=== PATIENT | female | born 1955 | race Caucasian/White ===

== ENCOUNTER 2016-08-21 08:08 | Emergency (ER) | payer OTHER ==
[2016-08-21] MEDS ORDERED: Vancomycin(*) 1,000 MG in NS 0.9% 250 ML* 250 ML IVPB ONE (08:15)
[2016-08-21] MEDS ORDERED: Ondansetron INJ* 2 MG/ML VIAL IV ONE (08:15)
[2016-08-21] MEDS ORDERED: NS 0.9% 1000 ML* 1,000 ML IV ONE (08:15)
[2016-08-21 09:05] LABS: Hematocrit 40 % (35-47); Hemoglobin 13.6 g/dl (12.0-16.0); Mean Corpuscular HGB Conc 34 g/dl (31-36); Mean Corpuscular Hemoglobin 29 pg (27-31); Mean Corpuscular Volume 85 fL (80-97); Mean Platelet Volume 9 um3 (7.4-10.4); Red Blood Count 4.72 10^6/ul (4.0-5.4); Red Cell Distribution Width 14 % (10.5-15); White Blood Count 6.9 10^3/ul (3.5-10.8)
[2016-08-21] MEDS ORDERED: NS 0.9% 250 ML* 250 ML ONE (09:14)
[2016-08-21 09:20] LABS: BUN/Creatinine Ratio 24.2 (8-20); Calcium 9.8 mg/dL (8.6-10.3); EGFR African American 80.6 (>60); EGFR Non-African American 62.6 (>60); Globulin 4.8 g/dL (2-4); Total Bilirubin 0.6 mg/dL (0.2-1.0); Total Protein 8.8 g/dL (6.4-8.9)
[2016-08-21] MEDS ORDERED: Vancomycin(*) 1,000 MG - ED ONCE IVPB ONE ×2 (09:30)
[2016-08-21 09:44] LABS: Potassium 3.7 mmol/L (3.5-5.0)
[2016-08-21 11:04] VITALS: BP 122/72
--- NOTE | 2016-08-21 11:57 | ED ---
Traci, DoctorBlanche, scribed for Madhav Mosher MD on 08/21/16 at 0818 . Lower Extremity - HPI Summary HPI Summary: 61 year old female BIBA c/o an infection in her right foot which began approximately a week ago. She also reports nausea and multiple episodes of vomiting; denies any current nausea. She was prescribed 2 separate abx 5 days ago, but has not been taking them as she was unable to keep anything down. She last took abx 3 days ago. Pt has PMHx of DM, and indicated that her blood sugar has been elevated in the past few days as she has not been taking insulin or metformin. - History of Current Complaint Stated Complaint: RT FOOT COMPLAINT Hx Obtained From: Patient Onset/Duration: Days Severity Initially: Moderate Severity Currently: Moderate Associated Signs And Symptoms: Positive: Redness, Other - right foot pain; nausea, vomiting - Allergies/Home Medications Allergies/Adverse Reactions: Allergies Allergy/AdvReac Type Severity Reaction Status Date / Time IVP Dye Allergy Intermediate Hives Uncoded 04/07/16 15:34 PMH/Surg Hx/FS Hx/Imm Hx Endocrine/Hematology History: Reports: Hx Diabetes Denies: Hx Thyroid Disease Cardiovascular History: Reports: Hx Angina - LAST TOOK NITRO 3 YRS AGO, Hx Coronary Artery Disease - 3 STENTS PLACED 10YRS AGO, Hx Hypertension, Other Cardiovascular Problems/Disorders - CAD Denies: Hx Pacemaker/ICD Respiratory History: Denies: Hx Asthma GI History: Reports: Hx Gastroesophageal Reflux Disease - WELL CONTROLLED, Hx Irritable Bowel - HX OF Denies: Hx Ulcer Musculoskeletal History: Reports: Hx Arthritis - BILATERAL HANDS AND FEET Denies: Hx Rheumatoid Arthritis, Hx Osteoporosis Sensory History: Reports: Hx Cataracts - BILATERAL, Hx Contacts or Glasses - READING Denies: Hx Hearing Aid Opthamlomology History: Reports: Hx Cataracts - BILATERAL, Hx Contacts or Glasses - READING Psychiatric History: Reports: Hx Depression - CONTROL WITH MEDS Denies: Hx Panic Disorder - Surgical History Surgery Procedure, Year, and Place: [address] 1987 , [place]. MASS REMOVED FROM LEFT HUMERUS, [facility]. L ACL REPAIR MAY 2013 Hx Anesthesia Reactions: No Infectious Disease History: Denies: Hx Hepatitis, Hx Human Immunodeficiency Virus (HIV) - Family History Known Family History: Positive: Other - no fhx of malignant hyperthermia or reaction to anesthesia - Social History Alcohol Use: None Substance Use Type: Reports: None Smoking Status (MU): Never Smoked Tobacco Review of Systems Negative: Fever Positive: Vomiting, Nausea Positive: Other - right foot pain/infection All Other Systems Reviewed And Are Negative: Yes Physical Exam Triage Information Reviewed: Yes Vital Signs On Initial Exam: Initial Vitals Temp Pulse Resp BP Pulse Ox 98.7 F 89 20 124/72 99 08/21/16 08:09 08/21/16 08:09 08/21/16 08:09 08/21/16 08:09 08/21/16 08:09 Vital Signs Reviewed: Yes Appearance: Positive: Well-Appearing, No Pain Distress Skin: Positive: Other - mild erythema and cellulitis on the right dorsolateral foot Head/Face: Positive: Normal Head/Face Inspection Eyes: Positive: Normal ENT: Positive: Normal ENT inspection Neck: Positive: Supple, Nontender Respiratory/Lung Sounds: Positive: Clear to Auscultation, Breath Sounds Present Cardiovascular: Positive: RRR Abdomen Description: Positive: Nontender, Soft Bowel Sounds: Positive: Present Musculoskeletal: Positive: Normal Neurological: Positive: Normal Psychiatric: Positive: Normal Diagnostics - Vital Signs Vital Signs Temp Pulse Resp BP Pulse Ox 08/21/16 11:02 98.7 F 86 20 122/72 08/21/16 08:17 98.7 F 89 20 124/72 98 08/21/16 08:09 98.7 F 89 20 124/72 99 - Laboratory Lab Results: 0850 - Lactic Acid - 2.4 H* Result Diagrams: 08/21/16 08:50 08/21/16 08:50 Lab Statement: Any lab studies that have been ordered have been reviewed, and results considered in the medical decision making process. Re-Evaluation - Re-Evaluation First Eval Re-Evaluation Time: 10:03 Comment: Discussed plan to discharge pt, she is agreeable. Lower Extremity Course/Dx - Course Course Of Treatment: Ms. Hernandez presented to the ED unableto tolerate her antibiotics for cellulitis secondary to N/V. She was hydrated here and treated with anti-emetics and felt much improved. I don't consider her to have failed out patient antibiotics as she has not actually taken them. Neverless I gave her an IV dose of vancomycin. - Diagnoses Provider Diagnoses: Cellulitis Discharge - Discharge Plan Condition: Stable Disposition: HOME Prescriptions: Ondansetron ODT TAB* [Zofran Odt TAB*] 4 mg PO Q6H PRN #20 tab.odt PRN Reason: Nausea/Vomiting Patient Education Materials: Cellulitis (ED) Referrals: Sly ROMERO,Casey Spivey [Primary Care Provider] - The documentation as recorded by the Doctor godinez Tahera accurately reflects the service I personally performed and the decisions made by me, Madhav Mosher MD.
== END 2016-08-21 11:05 | disposition home or self-care (01) ==
LOC: ED 08:08
DX: L03.115 Cellulitis of right lower limb (principal); E11.9 Type 2 diabetes mellitus without complications; I25.10 Atherosclerotic heart disease of native coronary artery without angina pectoris; I10 Essential (primary) hypertension
CPT/HCPCS: 36415; 80053; 83605; 85025; 85610; 87040; 96360; 96374; 99283; J2405; J3370

== ENCOUNTER 2018-06-28 07:05 | Emergency (ER) | payer OTHER ==
[2018-06-28] MEDS ORDERED: Acetaminophen TAB* 325 MG PO ONE (07:53)
[2018-06-28] MEDS ORDERED: Ondansetron ODT TAB* 4 MG PO ONE (07:53)
--- NOTE | 2018-06-28 08:26 | UC ---
Head Injury HPI - HPI Summary HPI Summary: SLIPPED ON THE ICE THIS MORNING AND FELL BACKWARDS STRIKING HER HEAD ON SLATE PAVEMENT. ALSO STRUCK HER LEFT ELBOW. HAS HEADACHE, DIZZINESS AND NAUSEA. NO LOC. NO VISUAL DISTURBANCE. - History Of Current Complaint Chief Complaint: UCHeadInjury Stated Complaint: BACK /NECK PAIN Time Seen by Provider: 06/28/18 07:18 Hx Obtained From: Patient Onset/Duration: Sudden Onset, Lasting Hours, Still Present Severity Currently: Moderate Severity Initially: Moderate Pain Intensity: 7 Pain Scale Used: 0-10 Numeric Character: Dull Aggravating Factor(s): Nothing Alleviating Factor(s): Nothing Associated Signs And Symptoms: Positive: Nausea. Negative: LOC (Time In Secs./ Mins/Hrs), LOC Duration Unknown, Confusion, Epistaxis, Dental Malocclusion, Neck Pain - Allergies/Home Medications Allergies/Adverse Reactions: Allergies Allergy/AdvReac Type Severity Reaction Status Date / Time Sulfa (Sulfonamide Allergy Rash And Verified 06/28/18 07:28 Antibiotics) Itching IVP Dye Allergy Intermediate Hives Uncoded 06/28/18 07:28 Home Medications: Home Medications Gabapentin CAP(*) [Neurontin 300 CAP(*)] 600 mg PO QID 06/28/18 [History Confirmed 06/28/18] Insulin GLARGINE(*) [Lantus(*)] 66 units SUBCUT BEDTIME 06/28/18 [History Confirmed 06/28/18] Lisinopril TAB* [Prinivil TAB 10 MG*] 20 mg PO DAILY 06/28/18 [History Confirmed 06/28/18] oxyCODONE/Acetamin 5/325 MG* [Percocet 5/325 TAB*] 1 tab PO Q4HR PRN MDD 10 05/18 [History Confirmed 06/28/18] PMH/Surg Hx/FS Hx/Imm Hx Endocrine History: Diabetes Cardiovascular History: Cardiac Disease, Hypertension - Surgical History Surgical History: Yes Surgery Procedure, Year, and Place: 2004 CARDIAC CATH [place] [id number] , [place]. 1987 , [place]. MASS REMOVED FROM LEFT HUMERUS - [facility], [facility]. L ACL REPAIR MAY 2013; Lt TOTAL KNEE. REPLACEMENT. bypass - Family History Known Family History: Positive: Other - no fhx of malignant hyperthermia or reaction to anesthesia - Social History Alcohol Use: None Substance Use Type: None Smoking Status (MU): Never Smoked Tobacco When Did the Patient Quit Smoking/Using Tobacco: A TEENAGER - Immunization History Most Recent Influenza Vaccination: 2014 Most Recent Tetanus Shot: UP TO DATE Most Recent Pneumonia Vaccination: WITHIN 5 YRS Review of Systems All Other Systems Reviewed And Are Negative: Yes Constitutional: Positive: Fatigue Eyes: Positive: Negative Respiratory: Positive: Negative Cardiovascular: Positive: Negative Gastrointestinal: Positive: Nausea Musculoskeletal: Positive: Arthralgia, Edema Neurological: Positive: Headache, Other - DIZZY Physical Exam Triage Information Reviewed: Yes Appearance: Well-Nourished, Ill-Appearing - MILD, Pain Distress - MILD Vital Signs: Initial Vital Signs Temp 98.6 F 06/28/18 07:25 Pulse 74 06/28/18 07:25 Resp 16 06/28/18 07:25 BP 138/84 06/28/18 07:25 Pulse Ox 99 06/28/18 07:25 Vital Signs Reviewed: Yes Eyes: Positive: Conjunctiva Clear, Other: - PERRL, EOMI Neck: Positive: Supple, Nontender, No Lymphadenopathy Respiratory Exam: Normal Cardiovascular Exam: Normal Abdomen Description: Positive: Soft Musculoskeletal: Positive: ROM Intact, Edema @ - LEFT ELBOW MEDIAL, Other: - TTP LEFT ELBOW MEDIALLY Neurological: Positive: Alert, Other: - CN II-XII GROSSLY INTACT BILATERALLY. RAPID ALTERNATING MOVEMENTS INTACT. NEG PRONATOR DRIFT. 5/5 STRENGTH. HEEL TO SAUL INTACT BILATERALLY. FINGER TO NOSE INTACT BUT SLUGGISH. Psychological: Positive: Age Appropriate Behavior Skin: Negative: Rashes Diagnostics - Radiology CT HEAD W/O CONTRAST Radiology Interpretation Completed By: Radiologist Summary of Radiographic Findings: NO EVIDENCE FOR ACUTE INTRACRANIAL ABNORMALITY. LEFT ELBOW XRAYS Radiology Interpretation Completed By: Radiologist Summary of Radiographic Findings: OSTEOARTHRITIS. NO ACUTE OSSEOUS INJURY Head Injury Course/Dx - Differential Dx/Diagnosis Provider Diagnosis: Concussion, Contusion of left elbow Discharge - Sign-Out/Discharge Documenting (check all that apply): Patient Departure All imaging exams completed and their final reports reviewed: Yes - Discharge Plan Condition: Stable Disposition: HOME Prescriptions: Ondansetron ODT TAB* [Zofran Odt TAB*] 4 mg PO Q6H PRN #20 tab.odt PRN Reason: Nausea/Vomiting Patient Education Materials: Concussion (ED), Contusion in Adults (ED) Forms: *Work Release Referrals: Gilberto Hughes MD [Medical Doctor] - If Needed Sly ROMERO,Casey Spivey [Primary Care Provider] - If Needed Additional Instructions: CT HEAD TODAY UNREMARKABLE. X-RAY OF YOUR LEFT ELBOW SHOWS NO BONY INJURY. OKAY FOR TYLENOL TONIGHT FOR HEADACHE. STARTING TOMORROW AFTERNOON CAN TAKE IBUPROFEN IF NEEDED. LIMIT SCREEN TIME AND AVOID ACTIVITIES THAT COULD RESULT IN ADDITIONAL HEAD INJURY. YOU NEED BOTH PHYSICAL AND COGNITIVE REST TO EXPEDITE RECOVERY. FOLLOW- UP WITH PCP IF SYMPTOMS ARE PERSISTENT AFTER 1 WEEK. GO TO THE ED WITHOUT FAIL IF YOU DEVELOP UNEQUAL PUPILS, VISUAL DISTURBANCE, GAIT INSTABILITY, SPEECH DIFFICULTY, NAUSEA/VOMITING, WORSENING HEADACHE, DIZZINESS, CONFUSION, WEAKNESS OR ANY OTHER CONCERNING SYMPTOMS. XRAY TODAY NEGATIVE FOR FRACTURE OR DISLOCATION OF YOUR LEFT ELBOW. YOUR SYMPTOMS SHOULD IMPROVE SIGNIFICANTLY OVER THE NEXT 1-2 WEEKS. IF YOU DO NOT IMPROVE EXPECTED FOLLOW-UP WITH YOUR PCP OR ORTHO. YOU MAY BENEFIT FROM REPEAT IMAGING AT THAT TIME. REST, ICE, COMPRESS, ELEVATE. ARACELIS WRAP NEEDED FOR SYMPTOM RELIEF. BE SURE TO GO THROUGH SLOW RANGE OF MOTION AND STRETCHING EXERCISES DAILY YOU ARE ABLE TO PREVENT STIFFENING UP AND MAKING THE DISCOMFORT WORSE. - Billing Disposition and Condition Condition: STABLE Disposition: Home
[2018-06-28 09:24] VITALS: BP 130/77
== END 2018-06-28 09:30 | disposition home or self-care (01) ==
LOC: UCEAST 07:05
DX: S06.0X0A Concussion without loss of consciousness, initial encounter (principal); S50.02XA Contusion of left elbow, initial encounter; E11.9 Type 2 diabetes mellitus without complications; I10 Essential (primary) hypertension; R11.0 Nausea; R51 Headache; R42 Dizziness and giddiness; Z79.4 Long term (current) use of insulin; Z79.899 Other long term (current) drug therapy; Z88.2 Allergy status to sulfonamides; Z91.041 Radiographic dye allergy status; W19.XXXA Unspecified fall, initial encounter; Y92.9 Unspecified place or not applicable
CPT/HCPCS: 70450; 99212; A9270-GY; G0463